=== PATIENT | female | born 1950 | race Two or more races ===

== ENCOUNTER 2017-05-03 10:13 | Emergency (ER) | payer MEDICARE, OTHER ==
[~2017-05-03] VITALS: Ht 154.9 cm; Wt 70.0 kg
[~2017-05-03 10:13] MED LIST: METH5TAB6 PO; METO50TA3 PO
[2017-05-03 10:16] VITALS: BP 165/92
[2017-05-03] MEDS ORDERED: FAMOTIDINE 20 MG TABLET ONE (10:39)
[2017-05-03] MEDS ORDERED: FAMOTIDINE 20 MG TABLET PO ONE (11:00)
== END 2017-05-03 11:10 | disposition home or self-care (01) ==
LOC: ED 10:59
DX: T78.40XA Allergy, unspecified, initial encounter (principal); I10 Essential (primary) hypertension; X58.XXXA Exposure to other specified factors, initial encounter
CPT/HCPCS: 99283; Q0177